=== PATIENT | female | born 1985 | race Caucasian/White ===

== ENCOUNTER 2018-05-01 16:16 | Inpatient (IN) | payer OTHER ==
[2018-05-01] MEDS: OXYTOCIN INJ 10 UNITS/ML VIAL (J2590) IM (18:00)
[2018-05-01] MEDS ORDERED: DIBUCAINE 1% OINTMENT 30GM TOP (18:00)
[2018-05-01] MEDS ORDERED: ACETAMINOPHEN 500 MG TAB PO (18:00)
[2018-05-01] MEDS ORDERED: DOCUSATE SODIUM 100 MG CAP PO (18:00)
[2018-05-01] MEDS ORDERED: MEASLES,MUMPS,RUBELLA VACCINE INJ (MMR-II) (90707) SC (18:00)
[2018-05-01] MEDS ORDERED: RHOGAM 300 MCG (1500 IU) INJ (J2790) IM (18:00)
[2018-05-01] MEDS: LIDOCAINE 1% MDV 20ML VIAL SC (18:00)
[2018-05-01] MEDS: IBUPROFEN 800 MG TAB PO (19:35)
[2018-05-02] MEDS: PRENATAL VITAMINS CHEWABLE TABLET PO (09:02)
[2018-05-02] MEDS: IBUPROFEN 800 MG TAB PO ×2 (09:03→19:44)
[2018-05-03] MEDS: PRENATAL VITAMINS CHEWABLE TABLET PO (09:00)
== END 2018-05-03 11:55 | disposition home or self-care (01) | DRG 775 ==
LOC: M LDI 16:16 → M OBS 20:28
PROC: 10E0XZZ Delivery of Products of Conception, External Approach (ICD-10-PCS; principal; 2018-05-01)
PROC: 0KQM0ZZ Repair Perineum Muscle, Open Approach (ICD-10-PCS; 2018-05-01)
DX: O70.1 Second degree perineal laceration during delivery (principal); Z37.0 Single live birth; Z88.8 Allergy status to other drugs, medicaments and biological substances